=== PATIENT | male | born 1940 | race Hispanic/Latino ===

== ENCOUNTER 2019-07-25 09:19 | Inpatient (IN) | payer OTHER, MEDICARE ==
[~2019-07-25] VITALS: Ht 160 cm; Wt 72.6 kg
[2019-07-25 09:41] LABS: BASOPHILS % (AUTO) 0.5 % (0.0-5.0); EOSINOPHILS % (AUTO) 0.5 % (0.0-8.0); HEMATOCRIT 39.4 % (42-54); LYMPHOCYTES % (AUTO) 24.8 % (21.0-51.0); MEAN CORPUSCULAR HEMOGLOBIN 31.5 pg (27.0-33.0); MEAN CORPUSCULAR HGB CONC 34.3 g/dL (32.0-36.0); MONOCYTES % (AUTO) 10.8 % (3.0-13.0); NEUTROPHILS % (AUTO) 63.4 % (40.0-77.0); NUCLEATED RED BLOOD CELLS 0.1 % (0.0-0.19); PLATELET COUNT (AUTO) 190 K/uL (130-400); RED BLOOD CELL COUNT(AUTO) 4.29 MIL/uL (4.50-6.20); RED CELL DISTRIBUTION WIDTH 12.6 % (11.0-15.5); WHITE BLOOD COUNT (AUTO) 7.2 K/uL (4.8-10.8)
[2019-07-25 09:43] LABS: APPEARANCE,URINE CLEAR (CLEAR); BILIRUBIN,URINE NEGATIVE (NEGATIVE); COLOR,URINE YELLOW (YELLOW); GLUCOSE, URINE (UA) NEGATIVE (NEGATIVE); KETONES,URINE NEGATIVE (NEGATIVE); LEUKOCYTE ESTERASE ,URINE NEGATIVE (NEGATIVE); NITRATE,URINE NEGATIVE (NEGATIVE); OCCULT BLOOD,URINE NEGATIVE (NEGATIVE); PROTEIN,URINE NEGATIVE (NEGATIVE); UROBILINOGEN,URINE 0.2 mg/dL (0.2-1.0)
[2019-07-25 09:48] LABS: CREATININE 1.1 mg/dL (0.5-1.5); POTASSIUM 3.6 mmol/L (3.5-5.1)
[2019-07-25 09:54] LABS: ALBUMIN 3.1 g/dL (3.5-5.0); BILIRUBIN,TOTAL 0.6 mg/dL (0.2-1.0); TOTAL PROTEIN, SERUM 7.5 g/dL (6.0-8.3)
[2019-07-25] MEDS ORDERED: DIPHENHYDRAMINE HCL 25 MG CAPSULE PO PRN (13:00)
[2019-07-25] MEDS ORDERED: ONDANSETRON HCL 4 MG/2 ML VIAL IV PRN (13:00)
[2019-07-25] MEDS ORDERED: LACTULOSE 20 GM/30 ML UDCUP PO PRN (13:00)
[2019-07-25] MEDS ORDERED: GUAIFENESIN-DM 200/20 MG 10 ML PO PRN (13:00)
[2019-07-25] MEDS ORDERED: NITROGLYCERIN 0.4 MG SL TAB SL PRN (13:00)
[2019-07-25 13:20] LABS: INR 1.06 (0.85-1.15); PARTIAL THROMBOPLASTIN TIME 26.7 SEC (26.3-35.5); PROTHROMBIN TIME 10.9 SEC (9.6-11.6)
[2019-07-25 13:27] VITALS: BP 135/72
[2019-07-25] MEDS: ACETAMINOPHEN-CODEINE 300/30MG TAB PO PRN (13:55)
[2019-07-25] MEDS ORDERED: FAMO20TA8 PO (14:07)
[2019-07-25] MEDS ORDERED: MAGN250T10 PO (14:07)
[2019-07-25] MEDS ORDERED: ATEN25TA PO (14:07)
[2019-07-25] MEDS ORDERED: HYDR12.54 PO (14:07)
[2019-07-25] MEDS ORDERED: MULT-1259 PO (14:07)
[2019-07-25] MEDS ORDERED: TAMS-1 PO (14:07)
--- NOTE | 2019-07-25 14:14 | NUR ---
DR. SOARES AWARE OF CONSULT SPOKE TO MD VIA TELEPHONE REGARDING CONSULT. MD REPLIED TOLD ME HE WOULD SEE PATIENT LATER TODAY.
--- NOTE | 2019-07-25 14:30 | NUR ---
DR. LOPEZ AWARE OF CONSULT SPOKE TO MD VIA TELEPHONE REGARDING CONSULT. MD PLACED ORDERS.
[2019-07-25 16:18] VITALS: BP 129/68
[2019-07-25 16:24] LABS: APPEARANCE,URINE Clear (CLEAR); BILIRUBIN,URINE Negative (NEGATIVE); COLOR,URINE Yellow (YELLOW); GLUCOSE, URINE (UA) Negative (NEGATIVE); KETONES,URINE Negative (NEGATIVE); LEUKOCYTE ESTERASE ,URINE Negative (NEGATIVE); NITRATE,URINE Negative (NEGATIVE); OCCULT BLOOD,URINE Negative (NEGATIVE); PROTEIN,URINE Negative (NEGATIVE)
[2019-07-25] MEDS ORDERED: IOHEXOL 350 MG/ML 100ML INFUS..BTL IV ONE (17:19)
[2019-07-25] MEDS: LACTATED RINGERS 1000ML 1,000 ML IV SCH ×2 (18:22→22:52)
[2019-07-25 19:20] VITALS: BP 125/67
--- NOTE | 2019-07-25 21:30 | NUR ---
ROUNDS PATIENT AWAKE AND ALERT. MEDICATED PER MARS FOR COMPLAINTS OF PAIN. RESP EVEN AND UNLABORED. NO SOB NOTED. VITALS STABLE. AFEBRILE. TOLERATINGIVF WELL. LR INFUSING AT 100ML/HR. CONSENT SIGNED FOR EXCISIONAL BIOPSY LEFT INGUINAL HERNIA LYMPH NODES. NO QUESTIONS OR CONCERNS VOICED AT THIS TIME. CALL LIGHT WITHIN REACH. WILL CONTINUE TO BE OBSERVED. Addendum: 07/26/19 at 0204 by MCKAYLA CHANCE RN RN Amended: Links added.
[2019-07-25] MEDS: FAMOTIDINE 20MG TAB 20 MG TAB PO SCH (21:34)
[2019-07-25] MEDS: MORPHINE SULFATE 2 MG/ML 1ML SYG IVP PRN (22:25)
[2019-07-25 23:04] VITALS: BP 129/66
[2019-07-26] VITALS (26 sets, daily range): BP systolic 96–149; BP diastolic 45–84
[2019-07-26 05:52] LABS: BASOPHILS % (AUTO) 0.6 % (0.0-5.0); EOSINOPHILS % (AUTO) 0.6 % (0.0-8.0); HEMATOCRIT 34.5 % (42-54); LYMPHOCYTES % (AUTO) 14.4 % (21.0-51.0); MEAN CORPUSCULAR HEMOGLOBIN 31.9 pg (27.0-33.0); MEAN CORPUSCULAR HGB CONC 34.3 g/dL (32.0-36.0); MEAN CORPUSCULAR VOLUME 93.1 fL (79-99); MONOCYTES % (AUTO) 12.4 % (3.0-13.0); PLATELET COUNT (AUTO) 177 K/uL (130-400); RED BLOOD CELL COUNT(AUTO) 3.71 MIL/uL (4.50-6.20); RED CELL DISTRIBUTION WIDTH 12.6 % (11.0-15.5); WHITE BLOOD COUNT (AUTO) 6.1 K/uL (4.8-10.8)
[2019-07-26] MEDS: MORPHINE SULFATE 2 MG/ML 1ML SYG IVP PRN ×2 (05:59→09:35)
[2019-07-26 06:01] LABS: CREATININE 1.1 mg/dL (0.5-1.5); POTASSIUM 3.6 mmol/L (3.5-5.1)
[2019-07-26] MEDS: ENOXAPARIN SODIUM 30 MG/0.3 ML SQ SCH (09:00)
[2019-07-26] MEDS: FAMOTIDINE 20MG TAB 20 MG TAB PO SCH ×2 (09:00→21:06)
[2019-07-26] MEDS: LACTATED RINGERS 1000ML 1,000 ML IV SCH ×2 (09:35→12:56)
[2019-07-26] MEDS ORDERED: LIDOCAINE PF 2% 5ML ABBOJECT ONE ×2 (12:23→12:24)
[2019-07-26] MEDS ORDERED: SUCCINYLCHOLINE 200MG/10ML SYR ONE ×2 (12:23→12:28)
[2019-07-26] MEDS ORDERED: PROPOFOL 10 MG/ML 20ML VIAL IV ONE (12:23)
[2019-07-26] MEDS ORDERED: MIDAZOLAM HCL 1 MG/ML 2ML VIAL ONE (12:23)
[2019-07-26] MEDS ORDERED: ONDANSETRON HCL 4 MG/2 ML VIAL ONE (12:23)
[2019-07-26] MEDS ORDERED: DEXAMETHASONE SOD PHOSPHATE 10MG/ML 1ML VIAL ONE (12:23)
[2019-07-26] MEDS ORDERED: NEOSTIGMINE 5MG/5ML SYR IV ONE (12:23)
[2019-07-26] MEDS ORDERED: GLYCOPYRROLATE 1 MG/5 ML SYRINGE ONE (12:23)
[2019-07-26] MEDS ORDERED: ROCURONIUM 10MG/1ML SYR 10 MG/ML ML ONE (12:23)
[2019-07-26] MEDS ORDERED: FENTANYL CITRATE PF 50 MCG/1 ML 2ML VIAL ONE (12:24)
[2019-07-26] MEDS ORDERED: BUPIVACAINE/PF 0.25% 30ML VIAL IJ ONE (12:36)
--- NOTE | 2019-07-26 13:08 | NUR ---
1130 PT OUT OF ROOM FOR BIOPSY. WILL RETURN FOR ASSESSMENT AFTER PROCEDURE Addendum: 07/26/19 at 1309 by DORCAS LEE RN CM Amended: Links added.
[2019-07-26] MEDS ORDERED: DEXTROSE 50%-WATER 50 ML DISP.SYRIN IV ONE (14:56)
--- NOTE | 2019-07-26 15:34 | NUR ---
RD NOTIFICATION DIET: NPO, PENDING PROCEDURE. PT WAS ON REGULAR DIET PREVIOUSLY. LBM: 07/24 PER PT. PO INTAKE 100% AND HAS GOOD APPETITE. UBW IS 210# ACCORDING TO THE PT. HE HAS NOT BEEN ABLE TO HAVE A BM. PT HAVING ABDOMINAL PAIN. PT COOKS FOR HIMSELF AT HOME AND CLAIMS TO EAT [address] RECOMMENDS TO ADVANCE DIET TOLERATED WHEN MEDICALLY FEASIBLE. RECOMMEND A STOOL SOFTENER. RD WILL CONTINUE TO FOLLOW UP NEEDED. Addendum: 07/26/19 at [address] RD Amended: Links added.
[2019-07-26] MEDS ORDERED: POTASSIUM CHLORIDE 10% ELIXIR 20 MEQ/15 ML UDCUP PO PRN (17:45)
[2019-07-26] MEDS ORDERED: POTASSIUM CHLORIDE 20MEQ/100ML 100 ML IV PRN (17:45)
[2019-07-26] MEDS ORDERED: POTASSIUM CHLORIDE 20 MEQ ERTAB PO PRN (17:45)
[2019-07-26] MEDS ORDERED: LIDOCAINE HCL-MPF 1% 2ML VIAL IV PRN (17:45)
[2019-07-26] MEDS ORDERED: LACTULOSE 20 GM/30 ML UDCUP PO PRN (18:45)
[2019-07-26 20:35] LABS: MAGNESIUM 1.5 mg/dL (1.80-2.40); POTASSIUM 4.1 mmol/L (3.5-5.1)
[2019-07-26 20:37] LABS: CREATINE KINASE, TOTAL 34 U/L (21-232); MYOGLOBIN 54 ng/mL (10-92)
[2019-07-26] MEDS: MAGNESIUM 2GM PREMIX 50ML 50 ML IV PRN (21:07)
[2019-07-27] MEDS: ACETAMINOPHEN-CODEINE 300/30MG TAB PO PRN ×2 (00:28→20:07)
[2019-07-27] MEDS: LACTATED RINGERS 1000ML 1,000 ML IV SCH ×2 (02:43→15:36)
[2019-07-27 03:01] VITALS: BP 143/65
--- NOTE | 2019-07-27 03:10 | NUR ---
NOTE RECEIVED REPORT FROM MARTIN CRISOSTOMO RN. TAKING OVER CARE. PATIENT AWAKE AND REPORTS NOT HAVING PAIN, SOB OR ANY DISCOMFORTS.
[2019-07-27 05:37] LABS: HEMATOCRIT 32.4 % (42-54); MEAN CORPUSCULAR HEMOGLOBIN 32.3 pg (27.0-33.0); MEAN CORPUSCULAR HGB CONC 34.9 g/dL (32.0-36.0); MEAN CORPUSCULAR VOLUME 92.5 fL (79-99); PLATELET COUNT (AUTO) 189 K/uL (130-400); RED BLOOD CELL COUNT(AUTO) 3.51 MIL/uL (4.50-6.20); RED CELL DISTRIBUTION WIDTH 12.7 % (11.0-15.5); WHITE BLOOD COUNT (AUTO) 6.3 K/uL (4.8-10.8)
[2019-07-27 05:47] LABS: CREATININE 1.2 mg/dL (0.5-1.5); MAGNESIUM 1.8 mg/dL (1.80-2.40); POTASSIUM 4.1 mmol/L (3.5-5.1)
[2019-07-27] MEDS: MAGNESIUM 2GM PREMIX 50ML 50 ML IV PRN (06:50)
[2019-07-27 08:00] VITALS: BP 139/71
--- NOTE | 2019-07-27 09:00 | NUR ---
INITIAL MET W PATIENT ALONE, AAOX3, CHART REVIEWED, IMAGING FERNY JARQUIN STTS KNOW HE HAS CANCER, IS HOPING HE HAS THREE GOOD YEARS BECAUSE THEN HIS HOUSE WILL BE PAID, SADVSIDE HIM THAT MANY PEOPLE RESPONSE WELL TO CHEMOTHERAPY AND LETS WAIT UNTIL THE ONCOLOGIST MAKES HIM A PLAN STATSE HE LIVES W SON, IS IN[place] OF [place], NO DME, DRIVE, HOME SAFE AND ACCESSIBLE, STATES HE HAS HAD THIS PAIN FO RSEVERAL YEARS AND KEPT TELLING HIS MD WHO SAID ID WAS [email or web address]. CM TOO FOLLOW Addendum: 07/29/19 at 1958 by DORCAS LEE RN CM Amended: Links added.
[2019-07-27] MEDS: ENOXAPARIN SODIUM 30 MG/0.3 ML SQ SCH (10:00)
[2019-07-27] MEDS: FAMOTIDINE 20MG TAB 20 MG TAB PO SCH ×2 (10:00→20:07)
[2019-07-27 11:29] VITALS: BP 131/63
[2019-07-27 16:00] VITALS: BP 153/68
[2019-07-27 19:00] VITALS: BP 147/62
[2019-07-27 23:02] VITALS: BP 135/60
[2019-07-28] VITALS (14 sets, daily range): BP systolic 121–163; BP diastolic 50–75
[2019-07-28] MEDS: MORPHINE SULFATE 2 MG/ML 1ML SYG IVP PRN (03:58)
[2019-07-28] MEDS: LACTATED RINGERS 1000ML 1,000 ML IV SCH ×2 (03:58→17:21)
[2019-07-28 05:17] LABS: HEMATOCRIT 33.5 % (42-54); MEAN CORPUSCULAR HEMOGLOBIN 31.6 pg (27.0-33.0); MEAN CORPUSCULAR HGB CONC 34.4 g/dL (32.0-36.0); MEAN CORPUSCULAR VOLUME 91.9 fL (79-99); PLATELET COUNT (AUTO) 190 K/uL (130-400); RED BLOOD CELL COUNT(AUTO) 3.65 MIL/uL (4.50-6.20); RED CELL DISTRIBUTION WIDTH 12.8 % (11.0-15.5); WHITE BLOOD COUNT (AUTO) 6.5 K/uL (4.8-10.8)
[2019-07-28 05:30] LABS: POTASSIUM 3.8 mmol/L (3.5-5.1)
[2019-07-28] MEDS: ENOXAPARIN SODIUM 30 MG/0.3 ML SQ SCH (09:00)
[2019-07-28] MEDS: FAMOTIDINE 20MG TAB 20 MG TAB PO SCH ×2 (11:01→20:18)
--- NOTE | 2019-07-28 14:15 | NUR ---
CT GD BONE MARROW ASP/BX PROCEDURE PERFORMED BY DR Mariusz DANIEL. PUNCTURE SITE RT BUTTOCK AND PATIENT TOLERATED PROCEDURE WELL. SPECIMEN X 5 COLLECTED AND SENT TO LAB. END OF PROCEDURE AT 1340. BIOPSY NEEDLE REMOVED AND DRESSING APPLIED. NO BLEEDING NOTED. REPORT GIVEN TO Marlen DUDLEY, RN, RN AND PATIENT TRANSPORTED TO [facility] VIA BED 1415. AAO X3 WITH NO C/O PAIN.
[2019-07-28] MEDS ORDERED: LIDOCAINE HCL 1% MDV 50ML VIAL ONE (15:00)
--- NOTE | 2019-07-28 15:04 | NUR ---
RD FOLLOW UP NOTE Pt NPO at time of screen, pending cath placement. Pt previously tolerating Heart Healthy diet with no report of GI distress and Good PO intake (100%). When medically feasible, Recommend to resume Heart Healthy Diet as tolerated. Pt LBM 07/27. RD to continue to monitor. Please notify RD as additional nutrition concern arise. Thank you. Addendum: 07/28/19 at [address] Amended: Links added.
[2019-07-28] MEDS ORDERED: LIDOCAINE 1%-EPI 1:100,000 20 ML VIAL IJ ONE (15:27)
[2019-07-28] MEDS ORDERED: MIDAZOLAM HCL 1 MG/ML 2ML VIAL ONE (15:33)
[2019-07-28] MEDS ORDERED: FENTANYL CITRATE PF 50 MCG/1 ML 2ML VIAL ONE (15:33)
[2019-07-28] MEDS ORDERED: OCTYL 2-CYANOACRYLATE 1 EACH TP ONE (15:37)
[2019-07-28] MEDS: ACETAMINOPHEN-CODEINE 300/30MG TAB PO PRN (20:18)
[2019-07-29] MEDS: LACTATED RINGERS 1000ML 1,000 ML IV SCH (03:40)
[2019-07-29 03:42] VITALS: BP 140/76
[2019-07-29 04:10] LABS: HEMATOCRIT 32.8 % (42-54); MEAN CORPUSCULAR HEMOGLOBIN 31.8 pg (27.0-33.0); MEAN CORPUSCULAR HGB CONC 34.6 g/dL (32.0-36.0); PLATELET COUNT (AUTO) 185 K/uL (130-400); RED BLOOD CELL COUNT(AUTO) 3.57 MIL/uL (4.50-6.20); RED CELL DISTRIBUTION WIDTH 12.7 % (11.0-15.5)
[2019-07-29 04:16] LABS: CREATININE 1.1 mg/dL (0.5-1.5); POTASSIUM 4.1 mmol/L (3.5-5.1)
[2019-07-29] MEDS: ACETAMINOPHEN-CODEINE 300/30MG TAB PO PRN (06:29)
[2019-07-29 07:27] VITALS: BP 139/65
[2019-07-29] MEDS: FAMOTIDINE 20MG TAB 20 MG TAB PO SCH (09:00)
[2019-07-29] MEDS: ENOXAPARIN SODIUM 30 MG/0.3 ML SQ SCH (09:41)
[2019-07-29 11:36] VITALS: BP 114/62
== END 2019-07-29 18:40 | disposition home or self-care (01) | DRG 825 ==
LOC: EDH 09:19 → EDHIP 12:15 → 4BH 13:09
PROVIDERS: ADMIT Internal Medicine Critical Care Medicine; ATTEND Internal Medicine Critical Care Medicine
PROC: 07BJ0ZX Excision of Left Inguinal Lymphatic, Open Approach, Diagnostic (ICD-10-PCS; principal; 2019-07-26 12:20)
PROC: 07DR3ZX Extraction of Iliac Bone Marrow, Percutaneous Approach, Diagnostic (ICD-10-PCS; 2019-07-28)
PROC: 0JH63WZ Insertion of Totally Implantable Vascular Access Device into Chest Subcutaneous Tissue and Fascia, Percutaneous Approach (ICD-10-PCS; 2019-07-28)
PROC: 02HV33Z Insertion of Infusion Device into Superior Vena Cava, Percutaneous Approach (ICD-10-PCS; 2019-07-28)
PROC: B5181ZA Fluoroscopy of Superior Vena Cava using Low Osmolar Contrast, Guidance (ICD-10-PCS; 2019-07-28)
PROC: B548ZZA Ultrasonography of Superior Vena Cava, Guidance (ICD-10-PCS; 2019-07-28)
DX: C85.90 Non-Hodgkin lymphoma, unspecified, unspecified site (principal); R16.2 Hepatomegaly with splenomegaly, not elsewhere classified; D64.9 Anemia, unspecified; I10 Essential (primary) hypertension; N40.0 Benign prostatic hyperplasia without lower urinary tract symptoms; E66.9 Obesity, unspecified; Z87.891 Personal history of nicotine dependence; R59.1 Generalized enlarged lymph nodes; R59.0 Localized enlarged lymph nodes; K59.00 Constipation, unspecified; F19.90 Other psychoactive substance use, unspecified, uncomplicated; Z68.28 Body mass index [BMI] 28.0-28.9, adult; Z79.899 Other long term (current) drug therapy
CPT/HCPCS: 36415; 36561; 38222; 71260; 74176; 74177; 77001; 77012; 80048; 80053; 81003; 82150; 82550; 82948; 83690; 83735; 83874; 84132; 84484; 85025; 85027; 85097; 85610; 85730; 87070; 87076; 87101; 87116; 87205; 87206; 88305; 88311; 88313; 93005; 99156; 99157; C1769; G0378; J0330; J1100; J1644; J1650; J2001; J2250; J2405; J2704; J2710; J3010; J3475; J3490; J7070; J7120; Q9967

== ENCOUNTER → 2020-08-10 | Outpatient (CLI) | payer OTHER, MEDICARE ==
[~2020-08-10] MED LIST: ATEN25TA PO; FAMO20TA8 PO; HYDR12.54 PO; MAGN250T10 PO; MULT-1259 PO; TAMS-1 PO
== END | disposition home or self-care (01) ==
LOC: RAH 11:14
PROVIDERS: ATTEND Family Medicine
DX: I70.213 Atherosclerosis of native arteries of extremities with intermittent claudication, bilateral legs (principal)
CPT/HCPCS: 93925

== ENCOUNTER → 2021-02-23 | Outpatient (CLI) | payer OTHER, MEDICARE | END | disposition home or self-care (01) | LOC: RAH 07:40 | PROVIDERS: ATTEND Family Medicine | DX: M51.16 Intervertebral disc disorders with radiculopathy, lumbar region (principal); M51.06 Intervertebral disc disorders with myelopathy, lumbar region; M48.061 Spinal stenosis, lumbar region without neurogenic claudication; M48.07 Spinal stenosis, lumbosacral region | CPT/HCPCS: 72148 ==

== ENCOUNTER 2022-07-21 12:30 | Emergency (ER) | payer MEDICARE ==
[~2022-07-21] VITALS: Ht 162.6 cm; Wt 88.5 kg
[2022-07-21 13:47] LABS: BASOPHILS % (AUTO) 0.5 % (0.0-5.0); EOSINOPHILS % (AUTO) 5.4 % (0.0-8.0); HEMATOCRIT 34.5 % (42-54); LYMPHOCYTES % (AUTO) 30.4 % (21.0-51.0); MEAN CORPUSCULAR HEMOGLOBIN 32.8 pg (27.0-33.0); MEAN CORPUSCULAR HGB CONC 33.9 g/dL (32.0-36.0); MEAN CORPUSCULAR VOLUME 96.6 fL (79-99); MONOCYTES % (AUTO) 11.9 % (3.0-13.0); NEUTROPHILS % (AUTO) 51.3 % (40.0-77.0); PLATELET COUNT (AUTO) 171 K/uL (130-400); RED BLOOD CELL COUNT(AUTO) 3.57 MIL/uL (4.50-6.20); RED CELL DISTRIBUTION WIDTH 13.1 % (11.0-15.5); WHITE BLOOD COUNT (AUTO) 6.2 K/uL (4.8-10.8)
[2022-07-21 13:54] LABS: POTASSIUM 3.7 mmol/L (3.5-5.1)
[2022-07-21 13:58] LABS: ALBUMIN 2.9 g/dL (3.5-5.0); TOTAL PROTEIN, SERUM 6.7 g/dL (6.0-8.3)
[2022-07-21] MEDS ORDERED: UNASYN 3GM VIAL IV ONE (15:00)
[2022-07-21] MEDS: AMP/SULBAC 3GM+NS 100ML 100 ML IV SCH ×2 (15:30→16:22)
[2022-07-21] MEDS ORDERED: IOHEXOL 350 MG/ML 100ML INFUS..BTL IV ONE (15:44)
[2022-07-21] MEDS ORDERED: CLINDAMYCIN 150 MG CAP PO ONE (16:30)
[2022-07-21] MEDS ORDERED: CLIN-141 PO (16:30)
[2022-07-21 17:05] VITALS: BP 137/79
== END 2022-07-21 17:06 | disposition home or self-care (01) ==
LOC: EDH 12:30
DX: K91.89 Other postprocedural complications and disorders of digestive system (principal); R59.0 Localized enlarged lymph nodes; I10 Essential (primary) hypertension; Z79.899 Other long term (current) drug therapy; Y83.8 Other surgical procedures as the cause of abnormal reaction of the patient, or of later complication, without mention of misadventure at the time of the procedure
CPT/HCPCS: 99285; 70491; 80053; 85025; 36415; 76536; Q9967; J0295

== ENCOUNTER 2023-03-18 12:58 | Emergency (ER) | payer MEDICARE ==
[~2023-03-18] VITALS: Ht 160 cm; Wt 83.5 kg
[~2023-03-18 12:58] MED LIST changes: +CLIN-141 PO
[2023-03-18 13:35] VITALS: BP 90/52
[2023-03-18] MEDS ORDERED: ASPIRIN 81MG CHEW TAB PO ONE (14:00)
[2023-03-18 14:01] LABS: BASOPHILS % (AUTO) 0.8 % (0.0-5.0); EOSINOPHILS % (AUTO) 21.2 % (0.0-8.0); HEMATOCRIT 33.8 % (42-54); LYMPHOCYTES % (AUTO) 25.7 % (21.0-51.0); MEAN CORPUSCULAR HEMOGLOBIN 32.4 pg (27.0-33.0); MEAN CORPUSCULAR HGB CONC 35.2 g/dL (32.0-36.0); MEAN CORPUSCULAR VOLUME 92.1 fL (79-99); MONOCYTES % (AUTO) 13.1 % (3.0-13.0); NEUTROPHILS % (AUTO) 38.2 % (40.0-77.0); PLATELET COUNT (AUTO) 113 K/uL (130-400); RED BLOOD CELL COUNT(AUTO) 3.67 MIL/uL (4.50-6.20); RED CELL DISTRIBUTION WIDTH 13.6 % (11.0-15.5); WHITE BLOOD COUNT (AUTO) 3.8 K/uL (4.8-10.8)
[2023-03-18 14:11] LABS: CREATININE 1.2 mg/dL (0.5-1.5); POTASSIUM 3.6 mmol/L (3.5-5.1)
[2023-03-18 14:16] LABS: ALBUMIN 3.3 g/dL (3.5-5.0); TOTAL PROTEIN, SERUM 6.2 g/dL (6.0-8.3)
[2023-03-18 14:24] LABS: APPEARANCE,URINE CLEAR (CLEAR); BILIRUBIN,URINE NEGATIVE (NEGATIVE); COLOR,URINE LIGHT-YELLOW (YELLOW); GLUCOSE, URINE (UA) NEGATIVE (NEGATIVE); KETONES,URINE NEGATIVE (NEGATIVE); LEUKOCYTE ESTERASE ,URINE NEGATIVE Leu/uL (NEGATIVE); NITRATE,URINE NEGATIVE (NEGATIVE); OCCULT BLOOD,URINE NEGATIVE (NEGATIVE); PH,URINE 5.5 (5.0-8.0); PROTEIN,URINE NEGATIVE (NEGATIVE); UROBILINOGEN,URINE 0.2 mg/dL (0.2-1.0)
[2023-03-18 14:26] LABS: MUCUS,URINE RARE LPF (None Seen); WBC,URINE 0-1 /HPF (0-1)
== END 2023-03-18 14:53 | disposition home or self-care (01) ==
LOC: EDH 12:58
DX: R53.83 Other fatigue (principal); T45.1X5A Adverse effect of antineoplastic and immunosuppressive drugs, initial encounter; I10 Essential (primary) hypertension; Z79.899 Other long term (current) drug therapy; Z20.822 Contact with and (suspected) exposure to COVID-19; Z98.890 Other specified postprocedural states
CPT/HCPCS: 99285; 71045; 87635; 84484; 80053; 85025; 87040 ×2; 87420; 87804 ×2; 83605; 81001; 36415; 93005; C9803